=== PATIENT | female | born 1990 | race Two or more races ===

== ENCOUNTER 2025-10-15 02:52 | Inpatient (IN) | payer OTHER, SELFPAY ==
[2025-10-15 01:20] VITALS: BMI 32.7
[2025-10-15 01:23] VITALS: BP 224/140
[2025-10-15 01:41] VITALS: BP 187/108
[2025-10-15 02:00] VITALS: BP 179/118
[2025-10-15 02:07] LABS: Hematocrit 35.0 % (37.0-47.0); Hemoglobin 11.5 g/dL (12.0-16.0); Mean Corp Hgb Conc. 32.9 g/dL (33.0-37.0); Mean Corpuscular Volume 85.0 fL (81.0-99.0); Nucleated Red Blood Cells % 0 %; Platelet Count 181 10^3/uL (130-400); Red Cell Dist. Width 14.8 % (11.5-14.5)
--- NOTE | 2025-10-15 02:08 | ED.GENMED ---
History of Present Illness
General
Chief Complaint: Blood Pressure Problem
Source: patient
Exam Limitations: none
Time Seen by Provider: 10/15/25 02:05
History of Present Illness
History of Present Illness:
See MDM
Past History
Past History
ED Past Medical History: None
ED Past Surgical History: None
Social History
Tobacco: Non-smoker
Alcohol: None
Phy Exam
Physical Exam
Physical Exam:
See MDM
Course
Orders/Labs/Results
Orders:
Orders
10/15/25 01:35
Electrocardiogram (*1) Urgent
Reason for Study: Chest Pain
Cardiac Monitoring- Treatment ONCE
EKG- Treatment ONCE
IV Insert/Care/Rem.- Treatment PRN
Test Result ONCE
O2 Therapy [RESP] Urgent
Titrate/Wean O2 to maintain O2 sat greater than (%): 90
Special Instructions: Maintain sats >/=90%
Pulse Ox/spot Check [RESP] Urgent
Quantity: 1
Special Instructions: ON ROOM AIR
10/15/25 01:55
Complete Blood Count/With Diff Urgent
Comprehensive Metabolic Panel Urgent
HCG, Serum Qualitative Screen Urgent
Comment: Notify provider if positive test present
Lipase Urgent
Troponin I Urgent
10/15/25 02:07
Labetalol HCl [Trandate] 10 mg IV NOW STA
10/15/25 02:35
Labetalol HCl [Trandate] 20 mg IV NOW STA
Abnormal Lab Results
10/15/25
01:55
WBC 11.0 H 10^3/uL
(4.8-10.8)
RBC 4.12 L 10^6/uL
(4.20-5.40)
Hgb 11.5 L g/dL
(12.0-16.0)
Hct 35.0 L %
(37.0-47.0)
MCHC 32.9 L g/dL
(33.0-37.0)
RDW 14.8 H %
(11.5-14.5)
MPV 10.7 H fL
(7.4-10.4)
Absolute Neuts (auto) 8.9 H 10^3/uL
(1.4-6.5)
Neutrophils % 81.0 H %
(42.2-75.2)
Lymphocytes % 13.3 L %
(20.5-51.1)
Sodium 133 L mmol/L
(135-145)
Carbon Dioxide 21 L mmol/L
(22-30)
Glucose 121 H mg/dl
(70-99)
AST 40 H U/L
(14-36)
Alkaline Phosphatase 220 H U/L
(38-126)
Troponin I 0.036 H* ng/ml
Total Protein 5.6 L g/dl
(6.3-8.2)
Albumin 2.9 L g/dl
(3.5-5.0)
10/15/25 01:55
10/15/25 01:55
Vital Signs
Initial and Last Documented VS:
Initial Vital Signs
Temp Pulse Resp BP Pulse Ox
97.8 F 80 24 224/140 100
10/15/25 01:23 10/15/25 01:23 10/15/25 01:23 10/15/25 01:23 10/15/25 01:23
Last Documented Vital Signs
Temp Pulse Resp BP Pulse Ox
98.1 F 76 17 179/118 99
10/15/25 02:00 10/15/25 02:00 10/15/25 02:00 10/15/25 02:00 10/15/25 02:10
MDM/Problems Addressed
Differential Diagnosis Includes:
Note:
CHIEF COMPLAINT(S)
Abdominal pain.
HISTORY OF PRESENT ILLNESS
The patient is a 35-year-old female presenting with a chief complaint of abdominal pain, noted for the past hour before the emergency department visit. She described the pain as significant enough to prompt her visit but reported improvement upon
arrival. She denied taking any medications prior to the visit and was not aware of any existing hypertension, although her blood pressure was significantly elevated during the examination.
PHYSICAL EXAM
General: Alert, no acute distress.
Skin: Warm, dry.
Head: Normocephalic, atraumatic
Neck: Appears supple, trachea midline.
Eyes, Ears, Nose, Mouth, and Throat: Moist mucous membranes
Cardiovascular: No signs of cyanosis. Regular rate and rhythm
Respiratory: Respirations are non-labored.
Abdomen: Appears mildly distended with mild central tenderness without rebound
Musculoskeletal: No deformities
Neurological: No focal neurological deficit observed.
Psychiatric: Cooperative, appropriate mood and affect.
PLAN
The plan includes administering antihypertensive medication to manage her elevated blood pressure. A comprehensive blood work panel will be conducted to assess any underlying issues, including a test to rule out as a potential
factor. If the test is positive, an ultrasound will be performed instead of a computed tomography (CT) scan to avoid radiation exposure.
DIFFERENTIAL DIAGNOSIS
The Differential Diagnosis includes, in no particular order and is not limited to:
- -related abdominal pain
- Essential hypertension
- Gastritis or peptic ulcer disease
- Gallbladder disease
- Pancreatitis
- Urinary tract infection
- Ovarian cyst or torsion
- Appendicitis
- Kidney stone
- Ectopic
SUMMARY OF ENCOUNTER
The patient was seen in the emergency department due to sudden-onset abdominal pain and discovered high blood pressure. Management focused on immediate blood pressure reduction and evaluation of the abdominal pains etiology, including the
consideration of . Blood work and diagnostic tests were planned for further assessment.
MEDICAL DECISION MAKING
-Complexity of Data Reviewed:
Chronic conditions affecting care
-Data:
Category 1:
Laboratory tests are ordered to evaluate underlying causes, including a test to inform further imaging decisions.
Category 2:
Discussion of management with other healthcare providers was considered but not explicitly mentioned in the transcript.
-Risk:
Prescription medication management and the need for diagnostic testing were addressed, with the consideration of not performing a CT scan if due to risk factors.
10/15/25 - 02:22
Patient discovered to be , with uncertain last menstrual period. No history of recent menstrual cycle recall. Patient is a mother of three, indicating previous pregnancies. Further evaluation is necessary to determine gestational age and
necessary care adjustments. Counseling on the importance of early care and potential nutritional supplements was initiated.
10/15/25 - 02:30
confirmed with positive test and bedside ultrasound indicating live intrauterine at approximately 35 weeks gestation. heart rate measured at 140 BPM. Consultation planned with Obstetrics to evaluate for potential
preeclampsia in the third trimester.
SUMMARY OF ENCOUNTER
The patient, a 35-year-old female, presented to the emergency department with sudden-onset abdominal pain and significantly elevated blood pressure. Upon evaluation, she was found to be . A bedside ultrasound confirmed a live intrauterine
, vertex position, with heart tones at approximately 140 beats per minute and a biparietal diameter indicating approximately 35 weeks of gestation. The case was immediately discussed with Obstetrics due to concerns of potential
preeclampsia.
EMERGENCY TREATMENTS ADMINISTERED
The patient received 10 mg of intravenous labetalol for blood pressure management and an additional 20 mg of intravenous labetalol was planned for administration.
MANAGEMENT OF THE PATIENTS CARE WAS DISCUSSED WITH
The case was discussed with the Obstetrics team due to concerns of preeclampsia in the third trimester.
PLAN
Administer an additional 20 mg of intravenous labetalol to manage blood pressure. Consult with Obstetrics for further evaluation and management of possible preeclampsia.
INDEPENDENT REVIEW OF LABS AND INTERPRETATION OF TESTS
My independent review of the bedside ultrasound indicates a live intrauterine at approximately 35 weeks gestation with the fetus in a vertex position and heart tones around 140 beats per minute.
PATIENT EDUCATION AND COUNSELING
The patient was counseled on the importance of follow-up with Obstetrics for potential preeclampsia monitoring and management in the third trimester. The significance of monitoring blood pressure and regular care was emphasized.
MEDICAL DECISION MAKING
-Complexity of Data Reviewed: Chronic conditions affecting care include essential hypertension. Differential Diagnosis includes -related abdominal pain, essential hypertension, and potential preeclampsia.
-Data:
Category 1: Ultrasound was independently reviewed to confirm the gestational age and condition.
Category 2: Discussion of management with the Obstetrics team regarding the potential for third-trimester preeclampsia.
-Risk: Prescription drug management with antihypertensive medication was addressed. Consideration of adverse outcomes due to possible preeclampsia.
DIAGNOSIS
- Essential hypertension - ICD-10: I10
- Abdominal pain, unspecified - ICD-10: R10.9
- Pre-existing hypertension complicating , childbirth, and the puerperium - ICD-10: O10.01
- Preeclampsia, unspecified - ICD-10: O14.90
*Pulse Oximetry
SaO2: 99
Nasal Cannula flow liters per minute: 99
Oxygen Mode of Delivery: Room air
Patient hypoxic: no
*Critical Care Note
Total Time (30-74mins, 75-104mins- exclusive of procedures): 35 min
comment:
The high probability of a clinically significant, sudden or life threatening deterioration of the cardiovascular system(s) required my full and direct attention, intervention and personal management. The aggregate critical care time was 35 minutes.
This time is in addition to time spent performing reported procedures but includes the following:
[x] Data Review and interpretation
[x] Patient assessment and monitoring of vital signs
[x] Documentation
[x] Medication orders and management
ED Attending Note
-
Portions of this chart may have been created with voice recognition software.� Occasional wrong word or��sound alike� substitutions may have occurred due to the inherent limitations of voice recognition software.
Discharge Plan
Departure
Patient Disposition: Admit
Date of Disposition: 10/15/25
Time of Disposition: 02:40
Presentation/result/management discussed w/ accepting MD/DO: OB
Discharge Problem:
Pre-eclampsia in third trimester
Referrals:
NONE,* [Family Provider, Internal Medicine]
Interventions
Interventions:
*Risk Screen - Suicide Last Done: 10/15/25 01:23
*Neglect/Abuse Screening Last Done: 10/15/25 01:23
EQ-Kcgdrz-Hjslkidsgm Assessment Last Done: 10/15/25 02:06
ED- Cardiac Assessment Last Done: 10/15/25 02:06
ED- Neurological Assessment Last Done: 10/15/25 02:06
ED- Pulmonary Assessment Last Done: 10/15/25 02:07
Discharge Date and Time
Print Language: LIBYAN
[2025-10-15 02:18] LABS: HCG, Serum Qualitative Screen Positive
[2025-10-15 02:23] LABS: ALT (SGPT) 26 U/L (0-35); AST (SGOT) 40 U/L (14-36); Albumin 2.9 g/dl (3.5-5.0); Alkaline Phosphatase 220 U/L (38-126); Blood Urea Nitrogen 13 mg/dl (7-17); Calcium 8.6 mg/dl (8.4-10.2); Carbon Dioxide 21 mmol/L (22-30); Chloride 107 mmol/L (98-107); Estimated Creatinine Clearance 114 ml/min; Glucose 121 mg/dl (70-99); Lipase 74 U/L (23-300); Potassium 3.5 mmol/L (3.5-5.1); Sodium 133 mmol/L (135-145); Total Protein 5.6 g/dl (6.3-8.2); eGFR > 60.00
[2025-10-15 02:32] LABS: Troponin I 0.036 ng/ml
[2025-10-15] MEDS: TRANDATE 20 MG IV (02:41)
[2025-10-15 02:45] VITALS: BP 178/126
[2025-10-15] MEDS: TRANDATE 40 MG IV (03:28)
[2025-10-15] MEDS: TRANDATE 80 MG IV (03:48)
[2025-10-15] MEDS: MAGNESIUM SULFATE 100 IV (03:57)
[2025-10-15] MEDS: APRESOLINE 10 MG IV ×2 (04:04→21:55)
[2025-10-15] MEDS: CELESTONE SOLUSPAN 2 MG IM (04:11)
[2025-10-15] MEDS: MAGNESIUM SULFATE 40 GRAM 1000 IV (04:13)
[2025-10-15] MEDS: PITOCIN 30 UNITS/NSS 500 ML IV (04:22)
[2025-10-15 04:31] LABS: Urine Character Clear (Clear)
[2025-10-15 04:33] LABS: INR 0.91; PT 12.6 Sec (11.4-14.6)
[2025-10-15 04:34] LABS: APTT 26.4 Sec (23.4-35.0)
[2025-10-15] MEDS: SUBLIMAZE 100 MCG EPIDURAL (04:39)
[2025-10-15] MEDS: FENTANYL/BUPIVACAINE 100 EPIDURAL (04:39)
[2025-10-15 05:12] VITALS: BP 182/113
[2025-10-15 05:16] LABS: Urine White Cell 0-2 /HPF (0-5)
[2025-10-15 05:18] LABS: Hepatitis B Surface Antigen Negative (Negative)
[2025-10-15 05:35] LABS: Hepatitis C Antibody Negative (Negative)
[2025-10-15 06:08] LABS: Cord ABG Comment CORD BLOOD
[2025-10-15 06:11] LABS: B.E. Cord ABG -7.8 mMOL/L; HCO3 Cord ABG 20.7 mmol/L; O2 Saturation % Cord ABG 46.4 %; PCO2 Cord ABG 53 mmHg; PO2 Cord ABG 21 mmHg; pH Cord ABG 7.20
[2025-10-15 09:21] LABS: ALT (SGPT) 31 U/L (0-35); AST (SGOT) 51 U/L (14-36); Albumin 2.5 g/dl (3.5-5.0); Alkaline Phosphatase 193 U/L (38-126); Blood Urea Nitrogen 13 mg/dl (7-17); Calcium 7.7 mg/dl (8.4-10.2); Carbon Dioxide 22 mmol/L (22-30); Chloride 107 mmol/L (98-107); Estimated Creatinine Clearance 114 ml/min; Glucose 116 mg/dl (70-99); Magnesium 4.5 mg/dl (1.6-2.3); Potassium 3.8 mmol/L (3.5-5.1); Sodium 128 mmol/L (135-145); Total Protein 4.9 g/dl (6.3-8.2); eGFR > 60.00
[2025-10-15 09:22] LABS: Hematocrit 31.2 % (37.0-47.0); Hemoglobin 10.5 g/dL (12.0-16.0); Mean Corp Hgb Conc. 33.7 g/dL (33.0-37.0); Mean Corpuscular Volume 85.0 fL (81.0-99.0); Platelet Count 138 10^3/uL (130-400); Red Cell Dist. Width 14.8 % (11.5-14.5)
[2025-10-15] MEDS: PROCARDIA XL (EXTENDED RELEASE) 30 MG PO ×2 (09:40→19:20)
--- NOTE | 2025-10-15 11:00 | W.CON.NEPH ---
Consultation
-
Date/Time Consultation Requested: 10/15/25 1015
Date/Time Consultation Performed: 10/15/25 1100
Requesting Provider: Robb Mancini
Performing Provider: Rylee Shirley
Reason for Consultation: Pre eclampsia, proteinuria
Medical History
-
Chief Complaint: Abd pain
History of Present Illness:
5-year-old female No significant past medical history presented to the ER last night with abdominal pain, congestion, chest pain. In the ER she found to be close to 34-35 weeks based on the ultrasound and her blood pressure noted to be 200
range diagnosed with preeclampsia. She then emergently had delivering a female baby. She is already mother of 3. She reports not knowing that she is and she was having her menstrual cycles. She does report taking something for
pain and doesn't recall the name of the medication. She denies any headache or blurry vision. Her abdominal pain has improved, vomited on admission. Denies any fever or coughing. Denies any dysuria. Sodium 120 down from 133 on admission.
Creatinine 0.7 BUN 13. Albumin 2.5. Urine protein creatinine ratio of 12 g/g of creatinine. She received Procardia, IV Mg with improvement of blood pressures during the visit with 150s. Nephrology consulted for preeclampsia and proteinuria. She
is unaware that she had any medical issues as she has not seen any doctor before.
Past Medical History
No known medical history
Social History
Tobacco: Non-Smoker
Alcohol: None
Living: With Family
Employment: Employed ( Works in a restaurant)
Family History
no family history of kidney disease or hypertension
Family History: Not Pertinent
Allergies / Home Medications
Allergy/AdvReac Type Severity Reaction Status Date / Time
No Known Allergies Allergy Verified 10/15/25 01:32
�Medication �Instructions �Recorded �Confirmed �Type
No Meds [No Current Medications] 10/15/25 10/15/25 History
Review of Systems
-
All other systems: Negative unless noted
Physical Exam
Vital Signs
Vital Signs
Temp Pulse Resp BP Pulse Ox
98.2 F 82 20 139/90 99
10/15/25 05:12 10/15/25 09:40 10/15/25 05:12 10/15/25 09:40 10/15/25 05:12
Lab Results
WBC 12.1 10^3/uL (4.8-10.8) H 10/15/25 08:56
RBC 3.67 10^6/uL (4.20-5.40) L 10/15/25 08:56
Hgb 10.5 g/dL (12.0-16.0) L 10/15/25 08:56
Hct 31.2 % (37.0-47.0) L 10/15/25 08:56
Plt Count 138 10^3/uL (130-400) D 10/15/25 08:56
Sodium 128 mmol/L (135-145) L 10/15/25 08:56
Potassium 3.8 mmol/L (3.5-5.1) 10/15/25 08:56
Chloride 107 mmol/L (98-107) 10/15/25 08:56
Carbon Dioxide 22 mmol/L (22-30) 10/15/25 08:56
BUN 13 mg/dl (7-17) 10/15/25 08:56
Creatinine 0.7 mg/dL (0.6-1.0) 10/15/25 08:56
eGFR > 60.00 10/15/25 08:56
Glucose 116 mg/dl (70-99) H 10/15/25 08:56
Calcium 7.7 mg/dl (8.4-10.2) L 10/15/25 08:56
Albumin 2.5 g/dl (3.5-5.0) L 10/15/25 08:56
Physical Exam
General: Awake, Alert, Oriented, AOx3, No Distress and Nontoxic
HEENT: EOMI, Anicteric and Conjunctivae Clear
Respiratory: Clear, Normal Excursion and Nonlabored Respirations
Cardiac: S1/S2 and Regular Rate/Rhythm
Abdomen: Soft, Nontender and Other ( incision appears clean)
Musculoskeletal: Edema (trace)
Skin: No Rash
Neuro: Nonfocal/Grossly Intact
Psych: Mood/afflect pleasant, Insight/judgement good and Appropriate
Data Reviewed
-
Labs: Labs Reviewed by me, Discussed with Nurse and Discussed with Patient
Assessment/Plan
-
IMP:
Preeclampsia
Nephrotic proteinuria
Hyponatremia
Hypoalbuminemia
Status post P-vijmdxg-bigpaljhq 35 weeks gestation
Elevated liver enzymes
Plan:
A/w preeclampsia, status post of a viable baby
Blood pressures are already improving, continue Procardia
Titrated doses as needed for normotension
Nephrotic range proteinuria initial test was about 24 g repeat was 12 g/g of creatinine, continue to monitor.
Hypoalbuminemia could be a dilutional with the
Expect to see improving hyponatremia as it seemed to be dilutional with the as well
Magnesium protocol per primary team
fortunately she maintains normal kidney function
Follow LFTs
discussed with the patient through analyst market intelligence line
Discussed with the nursing
[2025-10-15] MEDS: COLACE PO (12:22)
--- NOTE | 2025-10-15 16:05 | CM ---
CM consult for social group worker and dispo planning
Discussion with nursing- pt is Mandarin speaking and to spouse/Yady
Pt has three other children that are living in [place] currently with family
Pt was unaware she was 35 weeks
Pt may need assistance with car seat and crib
Pt listed as uninsured on chart
Attempted bedside meeting with pt utilizing Mandarin language line
Pt quite tired and falling asleep
Agreed to defer assessment and and planning so she may rest
[2025-10-15] MEDS: LR 1000 IV (20:14)
[2025-10-15] MEDS: COLACE 100 MG PO (20:15)
[2025-10-16] MEDS: TRANDATE 20 MG IV (00:10)
[2025-10-16] MEDS: MAGNESIUM SULFATE 40 GRAM 1000 IV (00:11)
[2025-10-16 06:39] LABS: Hematocrit 35.3 % (37.0-47.0); Hemoglobin 11.5 g/dL (12.0-16.0); Mean Corp Hgb Conc. 32.6 g/dL (33.0-37.0); Mean Corpuscular Volume 85.9 fL (81.0-99.0); Platelet Count 144 10^3/uL (130-400); Red Cell Dist. Width 15.6 % (11.5-14.5)
[2025-10-16 07:35] LABS: ALT (SGPT) 33 U/L (0-35); AST (SGOT) 42 U/L (14-36); Albumin 3.1 g/dl (3.5-5.0); Alkaline Phosphatase 199 U/L (38-126); Blood Urea Nitrogen 10 mg/dl (7-17); Calcium 6.2 mg/dl (8.4-10.2); Carbon Dioxide 25 mmol/L (22-30); Chloride 99 mmol/L (98-107); Estimated Creatinine Clearance > 125 ml/min; Glucose 109 mg/dl (70-99); Potassium 4.2 mmol/L (3.5-5.1); Sodium 126 mmol/L (135-145); Total Protein 6.1 g/dl (6.3-8.2); eGFR > 60.00
--- NOTE | 2025-10-16 07:54 | W.PN.ANS.POP ---
Anesthesia Post Operative
- Anesthesia Post Op Note
Vital Signs Stable-See Nursing Note: Yes
Airway Patent: Yes
Adequate Pain Control: Yes
Change in Mental Status: No
Current Postoperative Nausea & Vomiting: No
Anesthesia Complications: No
General Anesthetic Recall: No
Unplanned Admission: No
Post Op Hydration Adequate: Yes
[2025-10-16] MEDS: PROCARDIA XL (EXTENDED RELEASE) 30 MG PO ×2 (08:30→20:02)
[2025-10-16] MEDS: COLACE 100 MG PO ×2 (08:31→20:03)
[2025-10-16] MEDS: PROCARDIA XL (EXTENDED RELEASE) PO (08:31)
--- NOTE | 2025-10-16 14:19 | CM ---
[facility] and Rosie met with Nahed Afia to obtain additional information. Rosie did a financial screening, and I confirmed with Nahed via the video negative assembler that she has a car seat, a crib for the baby to sleep, and she plans to use formula for feeding
when the baby comes home. [facility] discussed with RN and will continue to follow to assist with any needs as identified.
[2025-10-16] MEDS: CALCIUM GLUCONATE 100 IV (15:26)
--- NOTE | 2025-10-16 15:33 | W.PN.NEPH.PH ---
Today's Communication / Plan
-
monitor bp
follow labs
IV calcium
Assessment/Plan
-
IMP:
Preeclampsia
Nephrotic proteinuria
Hyponatremia
Hypoalbuminemia
Status post A-ejnlfdk-gstemsfgx 35 weeks gestation
Elevated liver enzymes
Plan:
A/w preeclampsia, status post of a viable baby
Blood pressures are already improving, continue Procardia 30 mg twice daily
IV hydralazine and/or labetalol provided for hypertensive spikes
Titrated doses as needed for normotension
Nephrotic range proteinuria initial test was about 24 g repeat was 12 g/g of creatinine, continue to monitor.
Hypoalbuminemia could be a dilutional with the
Expect to see improving hyponatremia as it seemed to be dilutional with the as well
Magnesium protocol per primary team, now off
fortunately she maintains normal kidney function
Hyponatremia
2 grams IV calcium given this afternoon for hypocalcemia
discussed with the patient through automation and controls manager line
Discussed with the nursing, primary, and patient via language
-
-
Date of Service: October 16, 2025
CC / HPI / ROS
-
Chief Complaint:
HTN
preclampsia
History of Present Illness:
Blood pressure control slowly improving on Procardia 30 mg twice daily
Creatinine normal
Hypocalcemia noted likely due to magnesium infusion now off
Hyponatremia at 126
Review of Systems:
Subjectively nonoliguric
Noted fatigue
Labs
-
Labs:
WBC 13.7 10^3/uL (4.8-10.8) H 10/16/25 06:30
RBC 4.11 10^6/uL (4.20-5.40) L 10/16/25 06:30
Hgb 11.5 g/dL (12.0-16.0) L 10/16/25 06:30
Hct 35.3 % (37.0-47.0) L 10/16/25 06:30
Plt Count 144 10^3/uL (130-400) 10/16/25 06:30
Sodium 126 mmol/L (135-145) L 10/16/25 06:30
Potassium 4.2 mmol/L (3.5-5.1) 10/16/25 06:30
Chloride 99 mmol/L (98-107) 10/16/25 06:30
Carbon Dioxide 25 mmol/L (22-30) 10/16/25 06:30
BUN 10 mg/dl (7-17) 10/16/25 06:30
Creatinine 0.6 mg/dL (0.6-1.0) 10/16/25 06:30
eGFR > 60.00 10/16/25 06:30
Glucose 109 mg/dl (70-99) H 10/16/25 06:30
Calcium 6.2 mg/dl (8.4-10.2) L* D 10/16/25 06:30
Albumin 3.1 g/dl (3.5-5.0) L 10/16/25 06:30
Physical Exam
-
Vital Signs:
Vital Signs
Temp Pulse Resp BP Pulse Ox
98.2 F 69 20 144/94 99
10/15/25 05:12 10/16/25 08:30 10/15/25 05:12 10/16/25 08:30 10/15/25 05:12
Cardiovascular:: Regular rate and rhythm
Respiratory:: Bilateral: CTA
Lung Excursion:: Normal
Abdomen:: Soft and Tender
Bowel Sounds:: Normal
López Catheter: No
[2025-10-16] MEDS: TRANDATE 10 MG IV (21:42)
[2025-10-17 06:05] LABS: Blood Urea Nitrogen 10 mg/dl (7-17); Calcium 6.8 mg/dl (8.4-10.2); Carbon Dioxide 30 mmol/L (22-30); Chloride 107 mmol/L (98-107); Estimated Creatinine Clearance > 125 ml/min; Glucose 90 mg/dl (70-99); Potassium 4.0 mmol/L (3.5-5.1); Sodium 134 mmol/L (135-145); eGFR > 60.00
[2025-10-17] MEDS: CALCIUM GLUCONATE 100 IV (06:50)
[2025-10-17] MEDS: COLACE 100 MG PO ×2 (07:55→20:25)
[2025-10-17] MEDS: PROCARDIA XL (EXTENDED RELEASE) 30 MG PO ×2 (07:56→20:25)
[2025-10-17] MEDS: TRANDATE 40 MG IV (09:38)
[2025-10-17 11:19] LABS: Syphilis/T. pallidum Ab Reflex Negative (Negative)
[2025-10-17] MEDS: TRANDATE 100 MG PO (13:09)
--- NOTE | 2025-10-17 16:51 | W.PN.NEPH.PH ---
Today's Communication / Plan
-
Escalate labetalol to 200 mg 3 times daily
Follow-up urine protein to creatinine ratio in the am
Assessment/Plan
-
IMP:
Preeclampsia
Nephrotic proteinuria
Hyponatremia
Hypoalbuminemia
Status post V-ulnaeuz-gmdrxxijf 35 weeks gestation
Elevated liver enzymes
Plan:
A/w preeclampsia, status post of a viable baby
Blood pressures remains elevated despite Procardia 30 mg twice daily and IV labetalol
I will add labetalol 200 mg p.o. 3 times daily
IV hydralazine and/or labetalol provided for hypertensive spikes
Hyponatremia resolved
Nephrotic range proteinuria initial test was about 24 g repeat was 12 g/g of creatinine, continue to monitor., Will follow-up urine protein to creatinine ratio tomorrow
Hypoalbuminemia could be a dilutional with the
Magnesium protocol per primary team, now off
fortunately she maintains normal kidney function
Discussed with the nursing, primary,
-
-
Date of Service: October 17, 2025
CC / HPI / ROS
-
Chief Complaint:
HTN
preclampsia
History of Present Illness:
Blood pressure remains elevated
Creatinine normal
Hypocalcemia noted likely due to magnesium infusion now off
Hyponatremia now up to 134
Review of Systems:
Subjectively nonoliguric
Noted fatigue
Labs
-
Labs:
WBC 13.7 10^3/uL (4.8-10.8) H 10/16/25 06:30
RBC 4.11 10^6/uL (4.20-5.40) L 10/16/25 06:30
Hgb 11.5 g/dL (12.0-16.0) L 10/16/25 06:30
Hct 35.3 % (37.0-47.0) L 10/16/25 06:30
Plt Count 144 10^3/uL (130-400) 10/16/25 06:30
Sodium 134 mmol/L (135-145) L D 10/17/25 05:14
Potassium 4.0 mmol/L (3.5-5.1) 10/17/25 05:14
Chloride 107 mmol/L (98-107) 10/17/25 05:14
Carbon Dioxide 30 mmol/L (22-30) 10/17/25 05:14
BUN 10 mg/dl (7-17) 10/17/25 05:14
Creatinine 0.6 mg/dL (0.6-1.0) 10/17/25 05:14
eGFR > 60.00 10/17/25 05:14
Glucose 90 mg/dl (70-99) 10/17/25 05:14
Calcium 6.8 mg/dl (8.4-10.2) L* 10/17/25 05:14
Albumin 3.1 g/dl (3.5-5.0) L 10/16/25 06:30
Physical Exam
-
Vital Signs:
Vital Signs
Temp Pulse Resp BP Pulse Ox
98.2 F 93 20 162/103 99
10/15/25 05:12 10/17/25 13:09 10/15/25 05:12 10/17/25 13:09 10/15/25 05:12
[2025-10-17] MEDS: TRANDATE 200 MG PO (19:10)
--- NOTE | 2025-10-18 03:00 | DOWNTIME ---
There was a [employer] Client Advertising Account Executive Downtime on 10/18/2025 from 0100 to 10/18/2025 at 0255. Downtime documentation of patient's care, including medication administrations, has been reconciled in the electronic record per guidelines. Refer to the
patient's paper chart under the miscellaneous tab to see printed paper medication records and downtime forms.
[2025-10-18] MEDS: TYLENOL 650 MG PO (04:27)
[2025-10-18 06:55] LABS: Blood Urea Nitrogen 9 mg/dl (7-17); Calcium 8.0 mg/dl (8.4-10.2); Carbon Dioxide 27 mmol/L (22-30); Chloride 106 mmol/L (98-107); Estimated Creatinine Clearance > 125 ml/min; Glucose 81 mg/dl (70-99); Potassium 4.2 mmol/L (3.5-5.1); Sodium 132 mmol/L (135-145); eGFR > 60.00
[2025-10-18] MEDS: PROCARDIA XL (EXTENDED RELEASE) 30 MG PO (08:03)
[2025-10-18] MEDS: TRANDATE 200 MG PO ×3 (08:06→20:28)
[2025-10-18] MEDS: COLACE 100 MG PO (08:08)
--- NOTE | 2025-10-18 13:13 | W.PN.NEPH.PH ---
Today's Communication / Plan
-
see plan
Assessment/Plan
-
IMP:
Preeclampsia
Nephrotic proteinuria
Hyponatremia
Hypoalbuminemia
Status post D-dtmmicc-qcitqynth 35 weeks gestation
Elevated liver enzymes
Plan:
A/w preeclampsia, status post of a viable baby 35wks
Blood pressures remains elevated despite Procardia 30 mg twice daily and labetalol 200mg TID
will need slow titration of meds with goal of normotension
if her night BP still high >150, likely increase procardia to 60mg at hs dose
If she is not going to breast feed, have more options of BP meds
Hyponatremia stable-dilutional from preg
Nephrotic range proteinuria initial test was about 24 g repeat was 12 g/g of creatinine, repeat today is still high at 10gm/gm of cr
Will follow-up urine protein to creatinine ratio out pt
Hypoalbuminemia could be a dilutional with the
calcium is better, monitor for now
fortunately she maintains normal kidney function
pt insists of leaving since unable to sleep well here, explained to the pt that BP likely need to be more stabilized
Reviewed risk of eclampsia complications and need of Doc f/u
with lack of insurance we can not see her in office,she will have to find a doc
Discussed with the nursing in detail
TT spent close to 40min
-
-
Date of Service: October 18, 2025
CC / HPI / ROS
-
Chief Complaint:
HTN
preclampsia
History of Present Illness:
Blood pressure remains elevated
Creatinine normal
Hypocalcemia noted likely due to magnesium infusion now off, better at 8, i radha 1.1
Hyponatremia down to 132
Review of Systems:
Subjectively nonoliguric
Noted fatigue, insomnia and irritable
not breast feeding
Labs
-
Labs:
WBC 13.7 10^3/uL (4.8-10.8) H 10/16/25 06:30
RBC 4.11 10^6/uL (4.20-5.40) L 10/16/25 06:30
Hgb 11.5 g/dL (12.0-16.0) L 10/16/25 06:30
Hct 35.3 % (37.0-47.0) L 10/16/25 06:30
Plt Count 144 10^3/uL (130-400) 10/16/25 06:30
Sodium 132 mmol/L (135-145) L 10/18/25 06:10
Potassium 4.2 mmol/L (3.5-5.1) 10/18/25 06:10
Chloride 106 mmol/L (98-107) 10/18/25 06:10
Carbon Dioxide 27 mmol/L (22-30) 10/18/25 06:10
BUN 9 mg/dl (7-17) 10/18/25 06:10
Creatinine 0.6 mg/dL (0.6-1.0) 10/18/25 06:10
eGFR > 60.00 10/18/25 06:10
Glucose 81 mg/dl (70-99) 10/18/25 06:10
Calcium 8.0 mg/dl (8.4-10.2) L 10/18/25 06:10
Albumin 3.1 g/dl (3.5-5.0) L 10/16/25 06:30
Physical Exam
-
Vital Signs:
Vital Signs
Temp Pulse Resp BP Pulse Ox
98.2 F 71 20 172/107 99
10/15/25 05:12 10/18/25 08:06 10/15/25 05:12 10/18/25 08:06 10/15/25 05:12
Cardiovascular:: Regular rate and rhythm
Respiratory:: Bilateral: CTA
Lung Excursion:: Normal
Abdomen:: Nontender and Soft
Extremity Edema:: None: Bilateral:
López Catheter: No
[2025-10-18] MEDS: COLACE PO (20:28)
[2025-10-18] MEDS: PROCARDIA XL (EXTENDED RELEASE) PO (22:02)
[2025-10-18] MEDS: PROCARDIA XL (EXTENDED RELEASE) 60 MG PO (22:06)
[2025-10-19] MEDS: TRANDATE 200 MG PO ×2 (08:54→16:14)
[2025-10-19] MEDS: COLACE 100 MG PO (08:54)
[2025-10-19] MEDS: PROCARDIA XL (EXTENDED RELEASE) 60 MG PO (08:54)
--- NOTE | 2025-10-19 10:54 | CM ---
CM reviewed chart, spoke with Rosie from [facility].
Rosie will need the following from mother
--pay stubs for patient/, passports, utility bill, and ID.
Mother will qualify for patient pay for Hospital stay, baby will receive ongoing MA.
Mother seen bedside with use of video compliance technician (Mandarin- ID [id number]).
Mother confirms she has all needs for baby, confirms transportation home.
Mother aware of what needs to be provided to Rosie.
Mother denies questions from CM at this time, inquiring about d/c today.
CM will continue to follow.
Plan; home with family, no barriers to d/c from CM
--- NOTE | 2025-10-19 14:24 | W.PN.NEPH.PH ---
Today's Communication / Plan
-
ok to d/c
Assessment/Plan
-
IMP:
Preeclampsia
Nephrotic proteinuria
Hyponatremia
Hypoalbuminemia
Status post [id number] 35 weeks gestation
Elevated liver enzymes
Plan:
A/w preeclampsia, status post of a viable baby 35wks
Blood pressures improving wiht increasing procardia to 60mg BID, and labetalol 200mg TID
will need slow titration of meds with goal of normotension
If she is not going to breast feed, have more options of BP meds
Hyponatremia stable-dilutional from preg
Nephrotic range proteinuria initial test was about 24 g repeat was 12 g/g of creatinine, repeat 10/18 still high at 10gm/gm of cr
Will need follow-up urine protein to creatinine ratio out pt
Hypoalbuminemia could be a dilutional with the
calcium is better, monitor for now
fortunately she maintains normal kidney function
with lack of insurance we can not see her in office,she will have to find a doc
I was reported that she is plan to see resident clinic
also reviewed that if she starts to feel dizzy or low BP <100 should decrease procardia
repeat BMP, urine prot/cr in near future
Discussed with the Ob and pt
-
-
Date of Service: October 19, 2025
CC / HPI / ROS
-
Chief Complaint:
HTN
preclampsia
History of Present Illness:
Blood pressure better post meds
Creatinine normal
Hypocalcemia noted likely due to magnesium infusion now off, better at 8, i radha 1.1
Hyponatremia down to 132, no labs today
Review of Systems:
no fever, feels well
not breast feeding
Labs
-
Labs:
WBC 13.7 10^3/uL (4.8-10.8) H 10/16/25 06:30
RBC 4.11 10^6/uL (4.20-5.40) L 10/16/25 06:30
Hgb 11.5 g/dL (12.0-16.0) L 10/16/25 06:30
Hct 35.3 % (37.0-47.0) L 10/16/25 06:30
Plt Count 144 10^3/uL (130-400) 10/16/25 06:30
Sodium 132 mmol/L (135-145) L 10/18/25 06:10
Potassium 4.2 mmol/L (3.5-5.1) 10/18/25 06:10
Chloride 106 mmol/L (98-107) 10/18/25 06:10
Carbon Dioxide 27 mmol/L (22-30) 10/18/25 06:10
BUN 9 mg/dl (7-17) 10/18/25 06:10
Creatinine 0.6 mg/dL (0.6-1.0) 10/18/25 06:10
eGFR > 60.00 10/18/25 06:10
Glucose 81 mg/dl (70-99) 10/18/25 06:10
Calcium 8.0 mg/dl (8.4-10.2) L 10/18/25 06:10
Albumin 3.1 g/dl (3.5-5.0) L 10/16/25 06:30
Physical Exam
-
Vital Signs:
Vital Signs
Temp Pulse Resp BP Pulse Ox
98.2 F 85 20 173/113 99
10/15/25 05:12 10/18/25 22:06 10/15/25 05:12 10/19/25 08:54 10/15/25 05:12
Cardiovascular:: Regular rate and rhythm
Respiratory:: Bilateral: CTA
Lung Excursion:: Normal
Extremity Edema:: None: Bilateral:
López Catheter: No
--- NOTE | 2025-10-19 15:25 | W.DS.TRANS ---
DC Summary - Conservation Officer
-
Discharge Instructions:
Discharge Diagnosis/Procedures C- section, Pre-ecclampsia with severe features.
Diet Low Sodium
Activity As tolerated
Additional Activity Nothing in the vagina
Driving Restrictions No driving for 2 weeks
Bathing Restrictions OK to Shower
Instructions:
Stand-Alone Forms: LDRP Delivery
LDRP Hypertensive Disorders
Changes to Home Medications: No
Discharge Medications:
DC Medications w/original date entered in [employer]
labetalol 200 mg tablet 200 mg PO TID #90 tabs 10/19/25
nifedipine 60 mg tablet,extended release 60 mg PO BID #60 tabs 10/19/25
Home Medication Changes
Pending Results: Yes (placenta pathology report)
Total time spent discharging patient (in min): 45
[2025-10-19] MEDS: ADACEL 0.5 ML IM (15:43)
[2025-10-19] MEDS: M-M-R II 0.5 ML SC (15:45)
== END 2025-10-19 16:43 | disposition home or self-care (01) | DRG 787 ==
LOC: LDRP 02:52
PROVIDERS: Specialist; ADMITTING PHYSICIAN Obstetrics & Gynecology; CONSULT PHYSICIAN Internal Medicine; EMERGENCY PHYSICIAN Student in an Organized Health Care Education/Training Program
PROC: 10D00Z1 Extraction of Products of Conception, Low, Open Approach (ICD-10-PCS; 2025-10-15)
DX: O14.14 Severe pre-eclampsia complicating childbirth (principal); E87.1 Hypo-osmolality and hyponatremia; Z3A.34 34 weeks gestation of pregnancy; Z37.0 Single live birth; O76 Abnormality in fetal heart rate and rhythm complicating labor and delivery; O60.14X0 Preterm labor third trimester with preterm delivery third trimester, not applicable or unspecified; O99.284 Endocrine, nutritional and metabolic diseases complicating childbirth; E88.09 Other disorders of plasma-protein metabolism, not elsewhere classified; O77.0 Labor and delivery complicated by meconium in amniotic fluid
CPT/HCPCS: 76805; 80048; 80053; 81003; 81015; 82330; 82570; 82803; 83690; 83735; 84156; 84484; 84703; 85025; 85027; 85610; 85730; 86706; 86762; 86780; 86803; 86850; 86900; 86901; 87070; 87086; 87340; 87389; 87491; 87591; 88307; 90707; 90715; 93005; 96372; 96374; 96375; 96376; 99291